=== PATIENT | female | born 1950 | race Caucasian/White ===

== ENCOUNTER 2019-01-26 11:09 | Emergency (ER) | payer OTHER ==
[~2019-01-26] VITALS: Ht 157.5 cm; Wt 56.7 kg
[2019-01-26] MEDS ORDERED: RYTARY ER 48.71 EACH PO ×2 (11:45→11:48)
[2019-01-26] MEDS ORDERED: LINZESS290 MCG PO (11:46)
[2019-01-26] MEDS ORDERED: MIDODRINE HCL5 MG PO (11:46)
[2019-01-26] MEDS ORDERED: SYNTHROID88 MCG PO (11:46)
[2019-01-26] MEDS ORDERED: ATORVASTATIN CA10 MG PO (11:47)
[2019-01-26] MEDS ORDERED: OXYBUTYNIN CHLOR5 MG PO (11:47)
[2019-01-26] MEDS ORDERED: POLY119PG PO (11:48)
[2019-01-26] MEDS ORDERED: CEFADROXIL250 MG/5 M PO (17:04)
== END 2019-01-26 18:23 | disposition home or self-care (01) ==
LOC: ER 11:09
DX: N39.0 Urinary tract infection, site not specified (principal); B96.29 Other Escherichia coli [E. coli] as the cause of diseases classified elsewhere; R31.0 Gross hematuria; N93.8 Other specified abnormal uterine and vaginal bleeding; G20 Parkinson's disease; Z74.01 Bed confinement status

== ENCOUNTER 2019-04-18 00:04 | Inpatient (IN) | payer OTHER ==
[~2019-04-18] VITALS: Ht 160 cm; Wt 63.5 kg
[~2019-04-18 00:04] MED LIST: ATORVASTATIN CA10 MG PO; CEFADROXIL250 MG/5 M PO; LINZESS290 MCG PO; MIDODRINE HCL5 MG PO; OXYBUTYNIN CHLOR5 MG PO; POLY119PG PO; RYTARY ER 48.71 EACH PO; SYNTHROID88 MCG PO
[2019-04-18] MEDS ORDERED: MIDODRINE HCL5 MG (00:17)
[2019-04-18] MEDS ORDERED: RYTARY ER 48.71 EACH (07:41)
[2019-04-18] MEDS ORDERED: RYTARY ER 61.21 EACH (07:42)
[2019-04-19] MEDS ORDERED: CARBIDOPA-LEVO1 EAC4 (11:17)
[2019-04-19] MEDS ORDERED: RYTARY ER 48.71 EACH (11:18)
[2019-04-19] MEDS ORDERED: RYTARY ER 61.21 EACH (11:18)
== END 2019-04-22 21:26 | disposition home or self-care (01) | DRG 872 ==
LOC: ER 00:04 → SEC-K 07:21 → MEDJ 07:21
PROVIDERS: ADMIT Student in an Organized Health Care Education/Training Program
PROC: BW28ZZZ Computerized Tomography (CT Scan) of Head (ICD-10-PCS; principal; 2019-04-18)
DX: A41.9 Sepsis, unspecified organism (principal); N39.0 Urinary tract infection, site not specified; E86.0 Dehydration; E87.8 Other disorders of electrolyte and fluid balance, not elsewhere classified; G31.89 Other specified degenerative diseases of nervous system; G20 Parkinson's disease; F02.80 Dementia in other diseases classified elsewhere, unspecified severity, without behavioral disturbance, psychotic disturbance, mood disturbance, and anxiety; N93.8 Other specified abnormal uterine and vaginal bleeding